=== PATIENT | male | born 1965 | race Caucasian/White ===

== ENCOUNTER 2023-01-25 13:06 | Emergency (ER) | payer OTHER ==
[~2023-01-25] VITALS: Ht 175.2 cm; Wt 104.3 kg
[2023-01-25] MEDS ORDERED: ARIPIPRAZOLE20 MG PO (13:33)
[2023-01-25] MEDS ORDERED: PRAZOSIN HYDROCH1 MG PO (13:33)
[2023-01-25] MEDS ORDERED: DIVALPROEX SOD500 M1 PO (13:33)
[2023-01-25] MEDS ORDERED: PROPRANOLOL HY120 MG PO (13:34)
[2023-01-25] MEDS ORDERED: SERTRALINE HYD100 MG PO (13:34)
[2023-01-25] MEDS ORDERED: LISINOPRIL-HCT1 EACH PO (13:34)
[2023-01-25] MEDS ORDERED: TRAZODONE100 MG PO (13:34)
[2023-01-25 14:12] LABS: BASO % 0.4 % (0.0-1.0); EOS # 0.1 10*3/uL (0.0-0.4); EOS % 1.3 % (1.0-4.0); HEMATOCRIT 46.2 % (42.0-52.0); LYMPH % 22.2 % (27.0-41.0); MEAN CELL VOLUME 94.5 fl (80.0-94.0); MEAN CORPUSCULAR HGB 32.9 pg (27.0-31.0); MEAN CORPUSCULAR HGB CONC 34.8 g/dl (33.0-37.0); MEAN PLATELET VOLUME 9.7 fl (9.6-12.3); MONO # 0.7 10*3/uL (0.1-1.0); MONO % 8.1 % (3.0-9.0); NEUT # 6.1 10*3/uL (2.3-7.9); PLATELET COUNT AUTOMATED 299 10*3/uL (130-400); RED BLOOD COUNT 4.89 10*6/uL (4.50-5.90); RED CELL DISTRI WIDTH 11.8 % (0-14.5); WHITE BLOOD COUNT 9.1 10*3/uL (4.8-10.8)
[2023-01-25 14:43] LABS: BILIRUBIN Negative (Negative); BLOOD Negative (Negative); CLARITY Clear (Clear); COLOR Yellow (Yellow); GLUCOSE Negative (Negative); KETONE Negative (Negative); LEUKO ESTERASE Negative (Negative); NITRITE Negative (Negative); UROBILINOGEN 0.2 E.U./dl (0.0-1.0)
[2023-01-25 14:46] LABS: RBC 0-2 rbc/hpf (0-2); WBC 0-2 wbc/hpf (0-5)
[2023-01-25 14:47] LABS: ALKALINE PHOSPHATASE 90 U/L (46-116); BUN 7 mg/dl (9-23); CHLORIDE 95 mmol/L (98-107); LIPASE 46 U/L (12-53); POTASSIUM 3.7 mmol/L (3.4-5.1); SGPT/ALT 14 U/L (10-49)
[2023-01-25] MEDS ORDERED: PROTONIX40 MG PO ×2 (16:12→16:30)
== END 2023-01-25 16:35 | disposition home or self-care (01) ==
LOC: ED 13:06
PROVIDERS: Nurse Practitioner Family
DX: R10.13 Epigastric pain (principal); R59.0 Localized enlarged lymph nodes; R10.32 Left lower quadrant pain

== ENCOUNTER 2023-05-09 11:54 | Emergency (ER) | payer OTHER ==
[~2023-05-09] VITALS: Ht 175.2 cm; Wt 90.7 kg
[~2023-05-09 11:54] MED LIST: ARIPIPRAZOLE20 MG PO; DIVALPROEX SOD500 M1 PO; LISINOPRIL-HCT1 EACH PO; PRAZOSIN HYDROCH1 MG PO; PROPRANOLOL HY120 MG PO; PROTONIX40 MG PO; SERTRALINE HYD100 MG PO; TRAZODONE100 MG PO
[2023-05-09] MEDS ORDERED: CYCLOBENZAPRINE5 M3 PO (13:13)
[2023-05-09] MEDS ORDERED: MELOXICAM15 MG PO (13:13)
== END 2023-05-09 13:12 | disposition home or self-care (01) ==
LOC: ED 11:54
DX: S39.012A Strain of muscle, fascia and tendon of lower back, initial encounter (principal); I10 Essential (primary) hypertension; F31.9 Bipolar disorder, unspecified; X50.1XXA Overexertion from prolonged static or awkward postures, initial encounter; Y93.89 Activity, other specified; Y92.89 Other specified places as the place of occurrence of the external cause; Y99.8 Other external cause status